=== PATIENT | male | born 1955 | race Caucasian/White ===

== ENCOUNTER → 2018-11-13 | Outpatient (CLI) | payer OTHER, MEDICAID ==
[~2018-11-13] MED LIST: GADOBUTROL 10 ML VIAL IVP ONE
== END ==
LOC: FIMAGING 09:54
PROVIDERS: ATTEND Internal Medicine
DX: R93.2 Abnormal findings on diagnostic imaging of liver and biliary tract (principal); K74.60 Unspecified cirrhosis of liver; K76.6 Portal hypertension
CPT/HCPCS: 74181; A9585; 82565-PO